=== PATIENT | male | born 1975 | race Caucasian/White ===

== ENCOUNTER 2017-02-08 11:02 | Emergency (ER) | payer SELFPAY ==
--- NOTE | ~2017-02-08 | CR63 ---
[facility]. [facility] A Service of [facility] & [facility] RADIOLOGY TEXT RESULTS PATIENT: JACK DOAN LOCATION: SED : 73 UNIT #: [id number] AGE: [address]: PEGGY SMITH SEX: M ORDER DR: [id number] [place] [id number] E MR#: [id number] Acc #: [id number] NAME: JACK DOAN : 1975 SEX: M STUDY DATE/TIME: 02/08/2017 11:55 UNIT: SED ROOM: STUDY DESCRIPTION: CR Chest 2 View Attending Physician: Peggy Smith Aprn Ordering Physician: Peggy Smith Aprn MEDICAL IMAGING REPORT This report is preliminary unless electronic signature is present. EXAM Chest, PA and lateral HISTORY Fever, body sweats and aches for 1 week. FINDINGS PA and lateral views are obtained. The cardiovascular configuration is normal and the lungs are clear. CONCLUSION Normal chest. Dictated by... Chance Vergara M.D. THIS IS AN ELECTRONICALLY VERIFIED REPORT Chance Vergara M.D. at 02/12/2017 7:15 AM TOM/broderick TD: 02/08/2017 20:17 JOB #: [id number] MEDICAL IMAGING REPORT Page 1 of 1
[2017-02-08] MEDS ORDERED: NO MEDICATIONS (11:10)
[2017-02-08 11:47] LABS: BASOPHIL% 1.2 % (0-2.5); EOSINOPHIL% 0.1 % (0.0-7.0); HEMATOCRIT 45.5 % (38.0-50.0); HEMOGLOBIN 15.9 gm/dL (13.0-16.0); LYMPHOCYTE# 0.8 X10e3 (1.0-3.5); LYMPHOCYTE% 30.7 % (17.0-45.0); MEAN CELL VOLUME 93.4 FL (83-96); MEAN CORPUSCULAR HEMOGLOBIN 32.7 PG (28-34); MEAN PLATELET VOLUME 8.4 FL (6.5-11.5); MONOCYTE# 0.4 X10e3 (0-1.0); MONOCYTE% 13.3 % (3.0-12.0); NEUTROPHIL# 1.5 X10e3 (1.5-7.1); NEUTROPHIL% 54.7 % (40-75); PLATELET COUNT 58 X10e3 (140-420); RED BLOOD COUNT 4.87 X10e (3.90-5.60); RED CELL DISTRIBUTION WIDTH 13.7 % (11.0-15.5); WHITE BLOOD COUNT 2.7 X10e3 (4.0-10.5)
[2017-02-08 12:01] LABS: DIFF IND YES
[2017-02-08 12:04] LABS: BILIRUBIN,TOTAL 0.8 mg/dL (0.2-2.0); BUN/CREATININE RATIO 12.72; CALCIUM SERUM 8.6 mg/dL (8.4-10.2); CREATININE SERUM 1.1 mg/dL (0.6-1.4); GLOM FILT RATE Estimated 82.4 mL/min (>60); POTASSIUM 3.5 mmol/L (3.5-5.1); PROTEIN TOTAL SERUM 7.3 g/dL (6.0-8.3)
[2017-02-08 12:08] LABS: PLATELET ESTIMATE DECREASED (NORMAL)
[2017-02-08 12:09] LABS: RBC NORMAL YES
[2017-02-08 12:33] LABS: URINE SOURCE CLEAN CATCH
[2017-02-08 12:36] LABS: URINE APPEARANCE CLEAR; URINE BLOOD 2+ (NEG); URINE COLOR DK YELLOW; URINE GLUCOSE NEG (NORM); URINE KETONE NEG (NEG); URINE LEUKOCYTE ESTERASE NEG (NEG); URINE NITRATE NEG (NEG); URINE PROTEIN 2+ (NEG); URINE SPECIFIC GRAVITY >=1.030 (1.003-1.035)
[2017-02-08 12:41] LABS: URINE BILIRUBIN NEG (NEG)
[2017-02-08 12:42] LABS: MICRO INDICATED? YES
[2017-02-08 12:43] LABS: URINE ICTOTEST NEG (NEG)
[2017-02-08 12:44] LABS: CULTURE INDICATED? YES; URINE BACTERIA 1+ (NEG); URINE SQUAMOUS EPITHELIAL CELL MODERATE /[HPF]
[2017-02-08 12:45] LABS: URINE MUCUS PRESENT
== END 2017-02-08 13:08 | disposition home or self-care (01) ==
LOC: SED 11:02
PROVIDERS: Nurse Practitioner Family
DX: B27.90 Infectious mononucleosis, unspecified without complication (principal); F17.210 Nicotine dependence, cigarettes, uncomplicated
CPT/HCPCS: 36415; 71020; 80053; 81003; 85025; 86308; 87040; 87086; 87651; 99283